=== PATIENT | male | born 1945 | race Caucasian/White ===

== ENCOUNTER 2023-04-05 10:30 | Emergency (ER) | payer MEDICARE, SELFPAY ==
[2023-04-05 10:31] VITALS: BP 136/85; PULSE 50; RESP 18; TEMP 36.5; O2SAT 100
--- NOTE | 2023-04-05 11:59 | ED.EPISTAXIS ---
HPI - Epistaxis General Chief complaint: Epistaxis Stated complaint: nose bleed Time Seen by Provider: 04/05/23 10:45 History of Present Illness HPI Narrative: Patient presenting with nosebleed on the left side, started several hours ago, he has tried Afrin and applying pressure, however it has persisted. No recent trauma. Last nosebleed was years ago. Related Data Allergies Allergy/AdvReac Type Severity Reaction Status Date / Time Penicillins Allergy Mild Verified 03/12/09 10:28 Review of Systems Review of Systems: CONST: No fever. HEENT: nosebleed C/V: No chest pain RESP: No cough GI: no abdominal pain : No dysuria. M/S: No joint pain. SKIN: No rash. NEURO: [No headache or focal numbness or weakness] PSYCH: [No depression] Exam Narrative: EXAMINATION OF ORGAN SYSTEMS/BODY AREAS: Constitutional: Vital signs per nursing GENERAL:[No acute distress, non-toxic appearing.] HEAD: Normal with no signs of head trauma. EYES: EOMI, conjunctiva normal ENT: Active bleeding L nare LUNGS: Nonlabored breathing. HEART: [Regular rate and rhythm] ABD: [Soft], [nontender to palpation] EXT: Normal range of motion SKIN: [No rashes or lesions.] NEURO: [Alert and oriented x 3. No gross focal sensory or strength deficits.] PSYCH: Normal affect Course Vital Signs Vital signs: Vital Signs Temperature 97.7 F 04/05/23 10:31 Pulse Rate 50 L 04/05/23 10:31 Respiratory Rate 18 04/05/23 10:31 Blood Pressure 136/85 04/05/23 10:31 Pulse Oximetry 100 04/05/23 10:31 Temperature 97.7 F 04/05/23 10:31 Pulse Rate 50 L 04/05/23 10:31 Respiratory Rate 18 04/05/23 10:31 Blood Pressure 136/85 04/05/23 10:31 Pulse Oximetry 100 04/05/23 10:31 Procedures Epistaxis Control left: Epistaxis Control Date: 04/05/23 Nose Prepped With: lidocaine, oxymetazoline and other (TXA) Direct Inspection: unable to visualize Clots Removed by: blowing nose and manually Device Inserted: hemostatic balloon Device Size: 55 Patient Tolerated Procedure: well Complications: continued epistaxis and pain Epistaxis Control Narrative: D/w Dr Viveros after persistent bleeding despite inflating balloon additional 2x (total of 20cc air). He recommended insertion of rhinorocket on R nares so I did do that. MDM - Epistaxis MDM Narrative Medical decision making narrative: 77M p/w persistent nosebleed; I did attempt multiple times and ways to stop it but it has persisted (see procedure note). Finally called ENT who did come see the patient and did scope/pack at bedside, with much improvement. Return precautions discussed; per ENT Dr Viveros, pt will see him in clinic on Friday, no need for ppx abx. Lab Data 04/05/23 13:15 04/05/23 13:15 Labs: Lab Results 04/05/23 Range/Units 13:15 WBC 9.5 (4.5-10.0) K/mm3 RBC 5.11 (4.6-6.20) M/mm3 Hgb 15.8 (14.0-18.0) g/dL Hct 47.7 (42.0-52.0) % MCV 93.3 (80-100) fl MCH 30.9 (26-34) pg MCHC 33.1 (32-36) g/dl RDW 13.1 (11.5-14.5) % Plt Count 266 (150-375) k/mm3 MPV 9.7 (7.4-10.4) fl Immature Gran % (Auto) 0.3 (0-0.5) % Neut % (Auto) 66.1 (45.5-73.1) % Lymph % (Auto) 23.5 (18.3-44.2) % Canadian % (Auto) 8.1 (2.6-8.5) % Eos % (Auto) 1.4 (0-4.4) % Baso % (Auto) 0.6 (0.2-1.2) % Lymph # (Auto) 2.23 (0.9-3.2) K/mm3 Canadian # (Auto) 0.8 H (0.1-0.6) K/mm3 Eos # (Auto) 0.1 (0-0.3) K/mm3 Baso # (Auto) 0.1 (0.0-0.1) K/mm3 Abs Immat Gran (auto) 0.03 (0.00-0.031) K/mm3 Absolute Neuts (auto) 6.3 (1.3-6.7) K/mm3 Absolute Nucleated RBC 0.0 (0.0-0.012) K/mm3 Nucleated RBC % 0.0 (0.0-0.2) % Sodium 134 L (137-145) mmol/L Potassium 4.6 (3.4-5.0) mmol/L Chloride 99 (98-107) mmol/L Carbon Dioxide 25 (22-30) mmol/L Anion Gap 10 (8-16) mmol/L BUN 17 (9-20) mg/dL Creatinine 0.80 (0.7-1.3) mg/dL Estim Creat Clear Calc
[2023-04-05 13:22] LABS: Basophils Absolute Auto 0.1 K/mm3 (0.0-0.1); Basophils Percent Auto 0.6 % (0.2-1.2); Eosinophils Absolute Auto 0.1 K/mm3 (0-0.3); Eosinophils Percent Auto 1.4 % (0-4.4); Hematocrit 47.7 % (42.0-52.0); Hemoglobin 15.8 g/dL (14.0-18.0); Immature Granulocyte Absolute 0.03 K/mm3 (0.00-0.031); Immature Granulocyte Percent A 0.3 % (0-0.5); Lymphocytes Absolute Auto 2.23 K/mm3 (0.9-3.2); Lymphocytes Percent Auto 23.5 % (18.3-44.2); Mean Corpuscular HGB Conc 33.1 g/dl (32-36); Mean Corpuscular Hemoglobin 30.9 pg (26-34); Mean Corpuscular Volume 93.3 fl (80-100); Mean Platelet Volume 9.7 fl (7.4-10.4); Monocytes Absolute Auto 0.8 K/mm3 (0.1-0.6); Monocytes Percent Auto 8.1 % (2.6-8.5); Neutrophils Absolute Auto 6.3 K/mm3 (1.3-6.7); Neutrophils Percent Auto 66.1 % (45.5-73.1); Platelet Count Result 266 k/mm3 (150-375); Red Blood Count 5.11 M/mm3 (4.6-6.20); Red Cell Distribution Width 13.1 % (11.5-14.5); White Blood Count 9.5 K/mm3 (4.5-10.0)
[2023-04-05 13:34] LABS: Anion Gap 10 mmol/L (8-16); Blood Urea Nitrogen 17 mg/dL (9-20); Calcium 10.1 mg/dL (8.4-10.2); Carbon Dioxide 25 mmol/L (22-30); Chloride 99 mmol/L (98-107); Estimated CRCL calculation 71 ml/min; Estimated Glomerular Filt Rate > 60; Glucose 105 mg/dL (65-110); Potassium 4.6 mmol/L (3.4-5.0); Sodium 134 mmol/L (137-145)
--- NOTE | 2023-04-05 14:08 | P.CONS_ITS ---
Assessment and Plan Assessment and plan (1) Epistaxis: Code(s): R04.0 - Epistaxis Status: Acute Plan Frandy presented to the ED with left sided epistaxis, not easily controlled with topical treatments an packing, ENT was consulted. Placed a surgicel wrapped rhinorocket on the left side, where a suspected left posterior bleed was present. After 15-20 minutes of observation the degree of bleeding greatly subsided and he is improved enough for discharge home with precautions. Discussed return parameters as well. Please call me if he continues to bleed and needs further treatment. Otherwise plan on him following up with me in clinic on Friday for pack removal. HPI Data of Consult Date/Time: 04/05/23 14:08 Primary Care Provider: PHYSICIAN NOT ON STAFF Consult Narrative Reason for consult: epistaxis Narrative: Frandy Coyne is a 77 year old male on plavix and ASA, for hx of stents, came in this AM with left epistaxis. did not stop with afrin, TXA and e ventually nasal packing which prompted ENT consult. Hx of epistaxis years ago, but nothing recently. Review of Systems Review of Systems: All systems reviewed & are unremarkable except as noted in HPI and below Meds Home Medications and Allergies Allergies Allergy/AdvReac Type Severity Reaction Status Date / Time Penicillins Allergy Mild Verified 03/12/09 10:28 Vital Signs Vital Signs - 24 hr 04/05/23 10:31 Temperature 36.5 C Pulse Rate 50 L Respiratory Rate 18 Blood Pressure 136/85 Pulse Oximetry 100 Exam Narrative: Pt had bilateral nares packed upon my arrival, was still having blood clot coming up from the oropharynx. I removed both packs from the nares and examined the nasal passages carefully and did not see a source for bleeding on either side anteriorly. This is likely a posterior bleed. I took a 7.5cm rhinorocket, wrapped it in surgicel, soaked in afrin. I sprayed more afrin in the left nasal passage. Then I fully placed the 7.5cm rhinorocket on the left side. It went in without much difficulty. He tolerated it, there was a little residual bleeding afterwards. He was then observed for 15-20 minutes. Results Labs 04/05/23 13:15 04/05/23 13:15 Labs: Short CBC 04/05/23 Range/Units 13:15 WBC 9.5 (4.5-10.0) K/mm3 Hgb 15.8 (14.0-18.0) g/dL Hct 47.7 (42.0-52.0) % Plt Count 266 (150-375) k/mm3 [facility] 04/05/23 13:15 Sodium 134 L Potassium 4.6 Chloride 99 Carbon Dioxide 25 BUN 17 Creatinine 0.80 Glucose 105 Calcium 10.1
== END 2023-04-05 15:16 | disposition home or self-care (01) ==
PROVIDERS: Emergency Provider Emergency Medicine
DX: R04.0 Epistaxis (principal); Z79.02 Long term (current) use of antithrombotics/antiplatelets; Z79.82 Long term (current) use of aspirin
CPT/HCPCS: 30903; 36415; 80048; 85025; 99283; A9270

== ENCOUNTER 2023-04-06 22:37 | Emergency (ER) | payer MEDICARE, SELFPAY ==
[2023-04-06 22:40] VITALS: BP 160/93; PULSE 97; RESP 16; TEMP 36.6; O2SAT 86
--- NOTE | 2023-04-06 22:57 | ED.EPISTAXIS ---
HPI - Epistaxis General Chief complaint: Epistaxis Stated complaint: nose bleed Time Seen by Provider: 04/06/23 22:45 Source: patient Mode of arrival: ambulatory Limitations: no limitations History of Present Illness HPI Narrative: This is a 77-year-old male that presents to the emergency department for nose bleed. Ongoing since yesterday. He was seen in the emergency department for this and evaluated by ENT. He had a rhino rocket placed and was eventually able to be discharged. Today is have bleeding on and off. About an hour ago he started steadily bleeding and has not stopped. Denies fevers. Related Data Allergies Allergy/AdvReac Type Severity Reaction Status Date / Time Penicillins Allergy Mild Verified 03/12/09 10:28 Review of Systems Review of Systems: CONSTITUTIONAL: Denies fever ENT: Reports epistaxis All systems reviewed & are unremarkable except as noted in HPI and below PMFSH Past Medical History Medical History (Updated 04/07/23 @ 00:02 by Elisha Crawford PA-C) History of CAD (coronary artery disease) Social History Social History (Updated 04/06/23 @ 22:58 by Elisha Crawford PA-C) Smoking status: Former smoker Exam Narrative: GENERAL: Well-appearing, well-nourished, and in no acute distress. HEAD: Normocephalic, atraumatic. EYES: EOMI. ENT: Rhino rocket in place to the left nare with light oozing of blood. Mucous membranes moist. Oropharynx without tonsillar hypertrophy exudate or other lesions. CHEST: No respiratory distress. HEART: Regular rate EXTREMITIES: Normal range of motion. No edema. SKIN: Warm, dry, no rash. NEURO: No focal deficits. Alert and oriented x3. PSYCH: Normal mood and affect Course Course Emergency Course: Patient has been monitored in the ER over the last hour and a half without continued bleeding. Consultations Consultation #1: Spoke with Dr. Viveros about patient and workup. Would like to try to hold off on taking patient to the OR if his bleeding continues to be controlled Date: 04/06/23 Vital Signs Vital signs: Vital Signs Temperature 98 F 04/06/23 22:40 Pulse Rate 97 04/06/23 22:40 Respiratory Rate 16 04/06/23 22:40 Blood Pressure 160/93 H 04/06/23 22:40 Pulse Oximetry 86 L 04/06/23 22:40 Oxygen Delivery Room Air 04/06/23 22:40 Temperature 98 F 04/06/23 22:40 Pulse Rate 97 04/06/23 22:40 Respiratory Rate 16 04/06/23 22:40 Blood Pressure 160/93 H 04/06/23 22:40 Pulse Oximetry 93 04/06/23 23:24 Oxygen Delivery Room Air 04/06/23 22:40 MDM - Epistaxis MDM Narrative Medical decision making narrative: Patient presents to the ER for epistaxis ongoing since yesterday. He is afebrile and nontoxic appearing. Upon my evaluation his bleeding was once again controlled. His vitals are stable. Spoke with Dr. Viveros about patient and workup. Would like to try to hold off on taking patient to the OR if his bleeding continues to be controlled. He was monitored for about an hour and a half without continued bleeding. He will follow up outpatient as planned. He was given warnings to return to the ER His initial oxygen saturation was documented at 86%, but this was not a good waveform. Repeat oxygen saturation normal Differential Diagnosis Differential diagnosis: Likely anterior epistaxis and posterior epistaxis Critical Care Time Critical Care Time Critical Care Time: No Discharge Plan Discharge Clinical Impression: Epistaxis Patient Disposition: Home, Self-Care Condition: Stable Instructions: Nosebleed (ED) Additional Instructions: Return to the ER if you experience any worsening bleeding you are unable to control Continue to manage your nosebleed as directed by ENT and follow up at your scheduled appointment Follow-up/Referrals: Sedrick Viveros MD [Physician] - 2 Days PHYSICIAN NOT ON STAFF,NONSTAFF [Primary Care Provider] -
[2023-04-06 23:24] VITALS: O2SAT 93
[2023-04-07 00:06] VITALS: O2SAT 96
[2023-04-07 00:15] VITALS: O2SAT 97
== END 2023-04-07 00:26 | disposition home or self-care (01) ==
PROVIDERS: Emergency Provider Physician Assistant
DX: R04.0 Epistaxis (principal); I25.10 Atherosclerotic heart disease of native coronary artery without angina pectoris; Z87.891 Personal history of nicotine dependence
CPT/HCPCS: 30901; 99282